=== PATIENT | male | born 1985 | race Caucasian/White ===

== ENCOUNTER 2018-11-12 18:31 | Emergency (ER) | payer OTHER ==
--- NOTE | 2018-11-12 20:33 | RAD ---
RIGHT HAND THREE VIEWS: HISTORY: Injury. Breaking up dog fight. FINDINGS: There is a minimally displaced fracture involving the proximal fifth metacarpal. A nondisplaced frac ture involves the base of the fourth metacarpal. Associated soft tissue swelling. IMPRESSION: Fourth and fifth metacarpal fractures. POS: PPP
[2018-11-12] MEDS ORDERED: Ketorolac Tromethamine 30 MG/ML VIAL ONE (20:52)
== END 2018-11-12 21:28 | disposition home or self-care (01) ==
LOC: ERS 18:31
DX: S62.336A Displaced fracture of neck of fifth metacarpal bone, right hand, initial encounter for closed fracture (principal); S62.344A Nondisplaced fracture of base of fourth metacarpal bone, right hand, initial encounter for closed fracture; F17.210 Nicotine dependence, cigarettes, uncomplicated; F41.9 Anxiety disorder, unspecified; F32.9 Major depressive disorder, single episode, unspecified; Y04.0XXA Assault by unarmed brawl or fight, initial encounter
CPT/HCPCS: 29125; 96372; J1885

== ENCOUNTER 2022-08-04 16:30 | Emergency (ER) | payer OTHER ==
[2022-08-04] MEDS ORDERED: Ketorolac Tromethamine 30 MG/ML VIAL ONE (18:45)
== END 2022-08-04 19:02 | disposition home or self-care (01) ==
LOC: ERS 16:30
DX: M25.571 Pain in right ankle and joints of right foot (principal); M25.561 Pain in right knee; F17.210 Nicotine dependence, cigarettes, uncomplicated
CPT/HCPCS: 96372; J1885